=== PATIENT | male | born 1955 | race Caucasian/White ===

== ENCOUNTER 2022-12-10 11:27 | Emergency (ER) | payer MEDICARE ==
[2022-12-10 12:09] LABS: #Eosinphils 0.2 thou/uL (0.0-0.7); #Monocytes 0.4 thou/uL (0.11-0.59); #Neutrophils 3.8 thou/uL (1.40-6.50); %Basophils 0.5 % (0.0-1.0); %Eosinophils 2.9 % (0.0-10.0); %Lymphocytes 21.4 % (21.0-51.0); %Monocytes 7.2 % (0.0-10.0); %Neutrophils 67.5 % (42.0-75.0); Hemoglobin 9.6 g/dL (14.0-18.0); Mean Corpuscular HGB CONC 31.4 g/dL (32.0-36.0); Mean Corpuscular Hemoglobin 28.5 pg (27.0-31.0); Mean Corpuscular Volume 90.8 fl (78.0-98.0); Mean Platelet Volume 11.1 fL (7.4-10.4); RBC Distribution Width 14.1 % (11.5-14.5); Red Blood Cell (RBC) Count 3.37 mill/uL (4.70-6.10); White Blood Cell (WBC) Count 5.6 10x3/uL (4.8-10.8)
[2022-12-10 12:12] LABS: Platelet Count 87 10x3/uL (130-400)
[2022-12-10] MEDS ORDERED: LORazepam 2 MG/ML SYR.(CARPUJECT) ONE ×2 (12:25)
[2022-12-10] MEDS ORDERED: levETIRAcetam 500 MG/5 ML VIAL ONE (12:28)
[2022-12-10 12:31] LABS: Bacteria/HPF None Seen HPF (None Seen); Bilirubin Negative (Negative); Blood, Urine 1+ (Negative); CAUTI Indications for Culture Dysuria,urgency,freq; Clarity Clear (Clear); Glucose, Urine (Dipstick) Normal (Negative); Ketone, Urine Negative (Negative); Leukocyte Negative Leu/uL (Negative); Nitrite Negative (Negative); Protein, Urine (Dipstick) 100 mg/dL (Neg-Trace); RBC/HPF None Seen HPF (0-3); Specific Gravity, Urine 1.013 (1.002-1.036); Squamous Epithelial 0-3 HPF (0-3); Urobilinogen Normal mg/dL (Less than 2); WBC/HPF 0-3 HPF (0-3)
[2022-12-10 12:32] LABS: Urine Culture Reflex No No
[2022-12-10 12:33] LABS: Amphetamine Not Detected (NotDetected); Barbiturates Screen Not Detected (NotDetected); Benzodiazepine Screen Not Detected (NotDetected); Cocaine Metabolite Screen Not Detected (NotDetected); Methadone Not Detected (NotDetected); Methamphetamine Not Detected (NotDetected); Opiate Screen Not Detected (NotDetected); Oxycodone Screen Not Detected (NotDetected); Phencyclidine (PCP) Not Detected (NotDetected); THC/Cannabinoid Screen Not Detected (NotDetected); Tricyclic Screen Not Detected (NotDetected)
[2022-12-10 12:35] LABS: ALT (SGPT) 57 U/L (8-55); AST (SGOT) 21 U/L (5-34); Albumin 3.8 g/dL (3.4-4.8); Alkaline Phosphatase 120 U/L (40-110); Anion Gap 20 mmol/L (10-20); BUN (Urea Nitrogen) 60 mg/dL (8.4-25.7); Bilirubin, Total 0.8 mg/dL (0.2-1.2); Calc. Creatinine Clearance 0 mL/min (70-130); Calcium 8.7 mg/dL (7.8-10.44); Carbon Dioxide 18 mmol/L (23-31); Chloride 105 mmol/L (98-107); Estimated GFR 16; Globulin 2.4 g/dL (2.4-3.5); Glucose 109 mg/dL (80-115); Magnesium 1.2 mg/dL (1.6-2.6); Potassium 5.6 mmol/L (3.5-5.1); Protein, Total 6.2 g/dL (5.8-8.1); Sodium 137 mmol/L (136-145)
[2022-12-10] MEDS ORDERED: Magnesium 2 GM/50 ML BAG (IN WATER) ONE (13:04)
[2022-12-10] MEDS ORDERED: Calcium Gluc 4.6 MEQ/10 ML (100 MG/ML) ONE (15:30)
[2022-12-10] MEDS ORDERED: CALCIUM GLUC 1 GM/NS 50 ML BAG ONE (15:30)
[2022-12-10] MEDS ORDERED: LOKELMA 10 GM PACKET PO SCH (16:15)
== END 2022-12-10 16:29 | disposition short-term general hospital (02) ==
LOC: ERS 11:27
DX: E87.5 Hyperkalemia (principal); R56.9 Unspecified convulsions; I12.9 Hypertensive chronic kidney disease with stage 1 through stage 4 chronic kidney disease, or unspecified chronic kidney disease; N18.9 Chronic kidney disease, unspecified; E78.5 Hyperlipidemia, unspecified; Z79.899 Other long term (current) drug therapy
CPT/HCPCS: 70450; 80306; 81001; 82962; 83735; 93005; 94760; J0613; J1953; J2060; 36415; 36416; 80053; 84443; 85025; 96365; 96367; J0612; J3475

== ENCOUNTER 2023-05-28 18:46 | Inpatient (IN) | payer MEDICARE ==
[2023-05-28 19:45] LABS: Bacteria/HPF None Seen HPF (None Seen); Bilirubin Negative (Negative); Blood, Urine Negative (Negative); CAUTI Indications for Culture Alt mental st,lethar; Clarity Clear (Clear); Glucose, Urine (Dipstick) Normal (Negative); Ketone, Urine Negative (Negative); Leukocyte Negative Leu/uL (Negative); Nitrite Negative (Negative); Protein, Urine (Dipstick) 100 mg/dL (Neg-Trace); RBC/HPF None Seen HPF (0-3); Specific Gravity, Urine 1.013 (1.002-1.036); Squamous Epithelial None Seen HPF (0-3); Urobilinogen Normal mg/dL (Less than 2); WBC/HPF None Seen HPF (0-3); pH, Urine 5.5 (5.0-9.0)
[2023-05-28 19:45] LABS: #Eosinphils 0.5 thou/uL (0.0-0.7); #Monocytes 0.3 thou/uL (0.11-0.59); #Neutrophils 5.2 thou/uL (1.40-6.50); %Basophils 0.3 % (0.0-1.0); %Eosinophils 6.8 % (0.0-10.0); %Lymphocytes 15.8 % (21.0-51.0); %Monocytes 4.7 % (0.0-10.0); Hematocrit 30.5 % (42.0-52.0); Hemoglobin 9.8 g/dL (14.0-18.0); Mean Corpuscular HGB CONC 32.1 g/dL (32.0-36.0); Mean Corpuscular Hemoglobin 29.4 pg (27.0-31.0); Mean Corpuscular Volume 91.6 fl (78.0-98.0); Mean Platelet Volume 11.8 fL (7.4-10.4); Platelet Count 123 10x3/uL (130-400); RBC Distribution Width 14.4 % (11.5-14.5); Red Blood Cell (RBC) Count 3.33 mill/uL (4.70-6.10); White Blood Cell (WBC) Count 7.2 10x3/uL (4.8-10.8)
[2023-05-28 19:50] LABS: Urine Culture Reflex No No
[2023-05-28 20:14] LABS: Troponin I 0.013 ng/mL (< 0.028)
[2023-05-28 20:15] LABS: ALT (SGPT) 10 U/L (8-55); AST (SGOT) 8 U/L (5-34); Albumin 4.1 g/dL (3.4-4.8); Alkaline Phosphatase 106 U/L (40-110); BUN (Urea Nitrogen) 69 mg/dL (8.4-25.7); Bilirubin, Total 0.9 mg/dL (0.2-1.2); Calc. Creatinine Clearance 0 mL/min (70-130); Calcium 8.3 mg/dL (7.8-10.44); Carbon Dioxide 15 mmol/L (23-31); Chloride 108 mmol/L (98-107); Estimated GFR 13; Globulin 2.3 g/dL (2.4-3.5); Glucose 96 mg/dL (80-115); Magnesium 1.3 mg/dL (1.6-2.6); Potassium 5.6 mmol/L (3.5-5.1); Protein, Total 6.4 g/dL (5.8-8.1); Sodium 132 mmol/L (136-145)
[2023-05-28 20:16] LABS: Anion Gap 15 mmol/L (10-20)
[2023-05-28] MEDS ORDERED: Magnesium 2 GM/50 ML BAG (IN WATER) ONE (20:40)
[2023-05-28] MEDS ORDERED: Sodium Bicarbonate 150 MEQ in Dextrose 5% in Water 1,000 ML IV SCH (21:00)
[2023-05-28] MEDS ORDERED: Acetaminophen 650 MG Suppository PR PRN (21:47)
[2023-05-28] MEDS ORDERED: Ondansetron ODT 4 MG TAB PO PRN (21:47)
[2023-05-28] MEDS ORDERED: Ondansetron PF 4 MG/2 ML Vial IVP PRN (21:47)
[2023-05-28] MEDS ORDERED: Acetaminophen 325 MG TAB PO PRN (21:47)
[2023-05-28] MEDS ORDERED: LORazepam 2 MG/ML SYR.(CARPUJECT) ONE (22:30)
[2023-05-28] MEDS ORDERED: levETIRAcetam 500 MG (5 mL) VIAL ONE (22:30)
[2023-05-28] MEDS ORDERED: Lorazepam 2 MG/ML VIAL SLOW IVP PRN (22:40)
[2023-05-28 23:19] VITALS: BMI 33.9
[2023-05-28 23:25] LABS: Anion Gap 22 mmol/L (10-20); BUN (Urea Nitrogen) 72 mg/dL (8.4-25.7); Calc. Creatinine Clearance 19 mL/min (70-130); Calcium 8.4 mg/dL (7.8-10.44); Chloride 110 mmol/L (98-107); Estimated GFR 12; Glucose 112 mg/dL (80-115); Magnesium 1.9 mg/dL (1.6-2.6); Potassium 5.5 mmol/L (3.5-5.1); Sodium 135 mmol/L (136-145)
[2023-05-28 23:28] LABS: Carbon Dioxide 9 mmol/L (23-31); Critical Call Chemistry NUR.LBY@2327
[2023-05-29 01:00] LABS: Critical Call Chem-Lactate NUR.CJM1@0059; Lactic Acid 4.6 mmol/L (0.5-2.2)
[2023-05-29] MEDS ORDERED: Electrolyte Replacement Protocol 1 EACH FS SCH ×2 (01:15→02:15)
[2023-05-29 06:45] LABS: #Eosinphils 0.7 thou/uL (0.0-0.7); #Monocytes 0.6 thou/uL (0.11-0.59); #Neutrophils 4.9 thou/uL (1.40-6.50); %Basophils 0.1 % (0.0-1.0); %Lymphocytes 15.2 % (21.0-51.0); %Monocytes 7.6 % (0.0-10.0); %Neutrophils 67.7 % (42.0-75.0); Hematocrit 27.7 % (42.0-52.0); Mean Corpuscular HGB CONC 32.5 g/dL (32.0-36.0); Mean Corpuscular Hemoglobin 29.4 pg (27.0-31.0); Mean Corpuscular Volume 90.5 fl (78.0-98.0); Mean Platelet Volume 11.9 fL (7.4-10.4); RBC Distribution Width 14.3 % (11.5-14.5); Red Blood Cell (RBC) Count 3.06 mill/uL (4.70-6.10); White Blood Cell (WBC) Count 7.2 10x3/uL (4.8-10.8)
[2023-05-29 07:04] LABS: Lactic Acid 0.8 mmol/L (0.5-2.2)
[2023-05-29 07:12] LABS: Platelet Count 96 10x3/uL (130-400)
[2023-05-29 07:18] LABS: Anion Gap 16 mmol/L (10-20); BUN (Urea Nitrogen) 72 mg/dL (8.4-25.7); Calc. Creatinine Clearance 20 mL/min (70-130); Calcium 8.1 mg/dL (7.8-10.44); Carbon Dioxide 18 mmol/L (23-31); Chloride 106 mmol/L (98-107); Estimated GFR 13; Glucose 107 mg/dL (80-115); Iron 149 ug/dL (65-175); Iron Binding Capacity, Total 243 mcg/dL (261-462); Magnesium 2.4 mg/dL (1.6-2.6); Potassium 5.4 mmol/L (3.5-5.1); Sodium 135 mmol/L (136-145)
[2023-05-29 07:36] LABS: Ferritin 129.23 ng/mL (22-322); Thyroid Stimulating Hormone 0.542 uIU/mL (0.35-4.94)
[2023-05-29] MEDS ORDERED: Ergocalciferol 1.25 MG(50,000 UNITS) CAP PO SCH (09:00)
[2023-05-29] MEDS ORDERED: levETIRAcetam 500 MG (5 mL) VIAL ONE (09:15)
[2023-05-29] MEDS: levETIRAcetam 500 MG (5 mL) VIAL SLOW IVP SCH ×2 (09:29→21:44)
[2023-05-29] MEDS ORDERED: Sodium Bicarbonate 150 MEQ in Dextrose 5% in Water 1,000 ML IV SCH (09:30)
[2023-05-29] MEDS ORDERED: EPOETIN ALFA-EPBX (ESRD) 10,000 UNITS/ML VIAL SC SCH (10:30)
[2023-05-29] MEDS: Atorvastatin Calcium 40 MG TAB PO SCH (21:44)
[2023-05-30 04:44] LABS: #Eosinphils 0.5 thou/uL (0.0-0.7); #Monocytes 0.4 thou/uL (0.11-0.59); #Neutrophils 3.1 thou/uL (1.40-6.50); %Basophils 0.4 % (0.0-1.0); %Eosinophils 8.7 % (0.0-10.0); %Monocytes 6.5 % (0.0-10.0); Hematocrit 25.8 % (42.0-52.0); Hemoglobin 8.6 g/dL (14.0-18.0); Mean Corpuscular HGB CONC 33.3 g/dL (32.0-36.0); Mean Corpuscular Hemoglobin 29.4 pg (27.0-31.0); Mean Corpuscular Volume 88.1 fl (78.0-98.0); Mean Platelet Volume 12.2 fL (7.4-10.4); RBC Distribution Width 14.2 % (11.5-14.5); Red Blood Cell (RBC) Count 2.93 mill/uL (4.70-6.10); White Blood Cell (WBC) Count 5.4 10x3/uL (4.8-10.8)
[2023-05-30 04:52] LABS: Platelet Count 79 10x3/uL (130-400)
[2023-05-30 05:08] LABS: ALT (SGPT) Less than 7 U/L (8-55); AST (SGOT) 6 U/L (5-34); Albumin 3.3 g/dL (3.4-4.8); Alkaline Phosphatase 86 U/L (40-110); Anion Gap 13 mmol/L (10-20); BUN (Urea Nitrogen) 69 mg/dL (8.4-25.7); Bilirubin, Total 1.1 mg/dL (0.2-1.2); Calc. Creatinine Clearance 22 mL/min (70-130); Calcium 7.9 mg/dL (7.8-10.44); Carbon Dioxide 22 mmol/L (23-31); Chloride 102 mmol/L (98-107); Estimated GFR 14; Globulin 1.8 g/dL (2.4-3.5); Glucose 98 mg/dL (80-115); Magnesium 1.5 mg/dL (1.6-2.6); Protein, Total 5.1 g/dL (5.8-8.1); Sodium 133 mmol/L (136-145)
[2023-05-30] MEDS: Levothyroxine Sodium 100 MCG TAB PO SCH (05:28)
[2023-05-30] MEDS: Tamsulosin HCl 0.4 MG CAP PO SCH (09:05)
[2023-05-30] MEDS: levETIRAcetam 500 MG (5 mL) VIAL SLOW IVP SCH ×2 (09:05→20:31)
[2023-05-30] MEDS ORDERED: Magnesium 2 GM/50 ML(in water) 2 GM in Premix 1 BAG IVPB SCH (10:00)
[2023-05-30] MEDS ORDERED: Magnesium Oxide 400 MG TAB PO SCH (10:00)
[2023-05-30] MEDS: Sodium Chloride 0.9% 1,000 ML IV SCH (11:12)
[2023-05-30 14:20] LABS: Creatinine, Urine 83.27 mg/dL (63-166)
[2023-05-30] MEDS: Sodium Bicarbonate Tab 325 MG TAB PO SCH ×2 (15:21→20:31)
[2023-05-30] MEDS: Magnesium Oxide 400 MG TAB PO SCH (20:31)
[2023-05-30] MEDS: Atorvastatin Calcium 40 MG TAB PO SCH (20:31)
[2023-05-31] MEDS: Levothyroxine Sodium 100 MCG TAB PO SCH (06:29)
[2023-05-31] MEDS: Sodium Chloride 0.9% 1,000 ML IV SCH ×2 (06:30→23:22)
[2023-05-31] MEDS: Sodium Bicarbonate Tab 325 MG TAB PO SCH ×3 (09:32→21:07)
[2023-05-31] MEDS: levETIRAcetam 500 MG (5 mL) VIAL SLOW IVP SCH ×2 (09:32→21:07)
[2023-05-31] MEDS: Magnesium Oxide 400 MG TAB PO SCH ×2 (09:32→21:07)
[2023-05-31] MEDS: Tamsulosin HCl 0.4 MG CAP PO SCH (09:32)
[2023-05-31 13:36] LABS: #Eosinphils 0.4 thou/uL (0.0-0.7); #Monocytes 0.3 thou/uL (0.11-0.59); #Neutrophils 2.3 thou/uL (1.40-6.50); %Basophils 0.7 % (0.0-1.0); %Eosinophils 9.8 % (0.0-10.0); %Lymphocytes 27.6 % (21.0-51.0); %Monocytes 7.5 % (0.0-10.0); %Neutrophils 54.2 % (42.0-75.0); Hematocrit 25.9 % (42.0-52.0); Hemoglobin 8.4 g/dL (14.0-18.0); Mean Corpuscular HGB CONC 32.4 g/dL (32.0-36.0); Mean Corpuscular Hemoglobin 29.4 pg (27.0-31.0); Mean Corpuscular Volume 90.6 fl (78.0-98.0); Mean Platelet Volume 11.1 fL (7.4-10.4); Red Blood Cell (RBC) Count 2.86 mill/uL (4.70-6.10); White Blood Cell (WBC) Count 4.3 10x3/uL (4.8-10.8)
[2023-05-31 13:37] LABS: Platelet Count 87 10x3/uL (130-400)
[2023-05-31 13:56] LABS: BUN (Urea Nitrogen) 54 mg/dL (8.4-25.7); Calc. Creatinine Clearance 25 mL/min (70-130); Calcium 8.1 mg/dL (7.8-10.44); Carbon Dioxide 23 mmol/L (23-31); Chloride 103 mmol/L (98-107); Estimated GFR 16; Glucose 109 mg/dL (80-115); Potassium 4.3 mmol/L (3.5-5.1); Sodium 136 mmol/L (136-145)
[2023-05-31 14:02] LABS: Anion Gap 13 mmol/L (10-20)
[2023-05-31] MEDS: Atorvastatin Calcium 40 MG TAB PO SCH (21:07)
[2023-06-01] MEDS: Levothyroxine Sodium 100 MCG TAB PO SCH (05:49)
[2023-06-01] MEDS: Sodium Bicarbonate Tab 325 MG TAB PO SCH (08:37)
[2023-06-01] MEDS: Magnesium Oxide 400 MG TAB PO SCH (08:38)
[2023-06-01] MEDS: Tamsulosin HCl 0.4 MG CAP PO SCH (08:38)
[2023-06-01] MEDS: levETIRAcetam 500 MG (5 mL) VIAL SLOW IVP SCH (08:38)
[2023-06-01 08:55] LABS: Anion Gap 11 mmol/L (10-20); BUN (Urea Nitrogen) 54 mg/dL (8.4-25.7); Calc. Creatinine Clearance 28 mL/min (70-130); Calcium 8.1 mg/dL (7.8-10.44); Carbon Dioxide 23 mmol/L (23-31); Chloride 105 mmol/L (98-107); Estimated GFR 19; Glucose 91 mg/dL (80-115); Potassium 4.4 mmol/L (3.5-5.1); Sodium 135 mmol/L (136-145)
[2023-06-01 08:56] VITALS: BP 144/73; TEMP 96.7
[2023-06-05] MEDS ORDERED: EPOETIN ALFA-EPBX (ESRD) 10,000 UNITS/ML VIAL SC SCH (09:00)
== END 2023-06-01 11:56 | disposition home or self-care (01) | DRG 101 ==
LOC: ERS 18:46 → ERHOLD 21:41 → 2SE 05-29 10:54
PROVIDERS: ADMIT Student in an Organized Health Care Education/Training Program; ATTEND Internal Medicine
DX: G40.909 Epilepsy, unspecified, not intractable, without status epilepticus (principal); N17.9 Acute kidney failure, unspecified; E87.21 Acute metabolic acidosis; N18.4 Chronic kidney disease, stage 4 (severe); E87.1 Hypo-osmolality and hyponatremia; N25.81 Secondary hyperparathyroidism of renal origin; N18.9 Chronic kidney disease, unspecified; I12.9 Hypertensive chronic kidney disease with stage 1 through stage 4 chronic kidney disease, or unspecified chronic kidney disease; E78.5 Hyperlipidemia, unspecified; E87.5 Hyperkalemia; D64.9 Anemia, unspecified; N40.0 Benign prostatic hyperplasia without lower urinary tract symptoms; H54.8 Legal blindness, as defined in USA; D69.6 Thrombocytopenia, unspecified; E55.9 Vitamin D deficiency, unspecified; D63.1 Anemia in chronic kidney disease; E66.9 Obesity, unspecified; E03.9 Hypothyroidism, unspecified; Z79.899 Other long term (current) drug therapy; Z88.0 Allergy status to penicillin; Z88.1 Allergy status to other antibiotic agents; Z79.890 Hormone replacement therapy; Z98.890 Other specified postprocedural states; Z68.33 Body mass index [BMI] 33.0-33.9, adult
CPT/HCPCS: 36415; 70450; 71045; 76770; 80048; 80053; 81001; 82306; 82570; 82728; 83540; 83550; 83605; 83735; 83970; 84156; 84443; 84484; 85025; 93005; 96365; 96375; J1953; J2060; J3475; J7050; J7070